=== PATIENT | female | born 1945 | race Caucasian/White ===

== ENCOUNTER 2021-09-24 13:42 | Outpatient (CLI) | payer MEDICARE | END 2021-09-24 23:59 | disposition home or self-care (01) | LOC: CARD DIAG 13:42 | PROVIDERS: ATTEND Internal Medicine Cardiovascular Disease | DX: I08.0 Rheumatic disorders of both mitral and aortic valves (principal); I48.91 Unspecified atrial fibrillation; J44.9 Chronic obstructive pulmonary disease, unspecified | CPT/HCPCS: 93306 ==

== ENCOUNTER 2022-01-23 08:57 | Day surgery (SDC) | payer MEDICARE ==
[2022-01-22 14:36] LABS: BASOPHILS # (AUTO) 0.1 X10'3 (0-0.2); BASOPHILS % (AUTO) 0.8 % (0-1); EOSINOPHILS # (AUTO) 0.1 X10'3 (0-0.9); EOSINOPHILS % (AUTO) 1.5 % (0-6); HEMATOCRIT 42.7 % (35.0-45.0); LYMPHOCYTES # (AUTO) 1.4 X10'3 (1.1-4.8); LYMPHOCYTES % (AUTO) 16.9 % (21-51); MEAN CORPUSCULAR HEMOGLOBIN 28.2 PG (27.0-31.0); MEAN CORPUSCULAR HGB CONC 32.7 g/dL (33.0-36.5); MEAN CORPUSCULAR VOLUME 86.2 FL (78-98); MEAN PLATELET VOLUME 8.7 FL (7.4-10.4); MONOCYTES # (AUTO) 0.8 X10'3 (0-0.9); MONOCYTES % (AUTO) 9.3 % (2-12); NEUTROPHILS % (AUTO) 71.5 % (42-75); PLATELET COUNT 273 X10'3 (140-440); RED BLOOD COUNT 4.95 X10'6 (4.20-5.60); RED CELL DISTRIBUTION WIDTH 15.6 % (11.5-14.5); WHITE BLOOD COUNT 8.4 X10'3 (4.5-11.0)
[2022-01-22 14:56] LABS: ALBUMIN 3.3 G/DL (3.4-5.0); ANION GAP 10 (8-16); APTT 26 SECONDS (22-32); BLOOD UREA NITROGEN 15 MG/DL (7-18); BUN/CREATININE RATIO 14.9 (6.6-38.0); CALCIUM 8.4 MG/DL (8.5-10.1); CHLORIDE 111 MMOL/L (99-107); CREATININE 1.01 MG/DL (0.40-0.90); GLUCOSE 98 MG/DL (70-104); POTASSIUM 4.3 MMOL/L (3.5-5.1); SODIUM 147 MMOL/L (135-145); TOTAL CARBON DIOXIDE 25.7 MMOL/L (24-32); eGFR 53 ML/MIN
[~2022-01-23] VITALS: Ht 162.6 cm; Wt 91.1 kg
[2022-01-23] VITALS (10 sets, daily range): BP systolic 119–155; BP diastolic 58–88
[2022-01-23] MEDS ORDERED: normal saline 1,000 ML IV SCH (09:30)
[2022-01-23] MEDS ORDERED: acetylcysteine 200 MG/ml 4ml vial PO PRN (09:30)
[2022-01-23] MEDS ORDERED: diphenhydrAMINE 25mg capsule PO PRN (09:30)
[2022-01-23] MEDS ORDERED: LIDOcaine/PRILOcaine 5gm cream TP ONE (09:30)
[2022-01-23] MEDS ORDERED: LORazepam 0.5 MG tablet PO PRN (09:30)
[2022-01-23] MEDS ORDERED: verapamil 2.5 mg/ml inj IV ONE (10:40)
[2022-01-23] MEDS ORDERED: iohexol 350MG/ML 100ml bottle IV ONE (10:41)
[2022-01-23] MEDS ORDERED: fentaNYL/PF 50MCG/1 ML 2ML syringe ONE (10:41)
[2022-01-23] MEDS ORDERED: heparin 1,000unit/ml 10ml vial 10 ML ONE (10:41)
[2022-01-23] MEDS ORDERED: midazolam 1 mg/ML 2ml injection ONE (10:41)
[2022-01-23] MEDS ORDERED: nitroGLYCERIN-Tridil 50MG/D5W 250 ML IV ONE (10:41)
[2022-01-23] MEDS ORDERED: LIDOcaine 1% 30ml preserv. free vial ONE (10:42)
[2022-01-23] MEDS ORDERED: NEBI5TAB12 (11:05)
[2022-01-23] MEDS ORDERED: ASPI-1264 PO (11:05)
[2022-01-23] MEDS ORDERED: MONT-40 PO ×2 (11:05→11:07)
[2022-01-23] MEDS ORDERED: LORA10TA7 PO (11:05)
[2022-01-23] MEDS ORDERED: MULT-1085 PO (11:06)
[2022-01-23] MEDS ORDERED: OSC500T PO (11:07)
[2022-01-28 06:13] LABS: ISTAT HGB ART 13.3 g/dl (12.0-16.0); ISTAT Hct ART 39 %PCV (35-48); ISTAT Hct MIX 40 %PCV (35-48); ISTAT O2 SATURATION ARTERIAL 99 % (95-98); ISTAT O2 SATURATION MIX VENOUS 68 % (60-80); ISTAT SOURCE BLNK
== END 2022-01-23 17:05 | disposition home or self-care (01) ==
LOC: SSTAY O 08:57
PROVIDERS: ATTEND Internal Medicine Cardiovascular Disease
DX: R06.02 Shortness of breath (principal); R53.83 Other fatigue; I25.10 Atherosclerotic heart disease of native coronary artery without angina pectoris; I48.0 Paroxysmal atrial fibrillation; J44.9 Chronic obstructive pulmonary disease, unspecified; Z90.710 Acquired absence of both cervix and uterus; Z98.890 Other specified postprocedural states; Z98.818 Other dental procedure status; Z79.82 Long term (current) use of aspirin; Z79.899 Other long term (current) drug therapy; Z88.8 Allergy status to other drugs, medicaments and biological substances
CPT/HCPCS: 36415; 76937; 80048; 85025; 85610; 85730; 93005; 93460; 99152; 99153; C1751; C1769; C1894; J1644; J2250; J3010; J3490; J7030; Q0163; Q9967; 82803; 85014; A6258; A6402